=== PATIENT | male | born 1945 | race Caucasian/White ===

== ENCOUNTER → 2017-08-16 | Outpatient (CLI) | payer MEDICARE ==
[~2017-08-16] MED LIST: CHOL10003 PO; CLOP75TA PO; LISI-170 PO; MULT-224 PO; SIMV40TA3 PO
[2017-08-16 16:15] LABS: HEMATOCRIT 49.2 % (39.2-51.8); HEMOGLOBIN 16.8 g/dL (13.7-18.0); WHITE BLOOD COUNT 12.4 x10^3/uL (3.4-10)
[2017-08-16 16:27] LABS: BLOOD UREA NITROGEN 14 mg/dL (7-18)
== END | disposition home or self-care (01) ==
LOC: STAR 15:17
PROVIDERS: ATTEND Surgery
DX: Z01.818 Encounter for other preprocedural examination (principal); I10 Essential (primary) hypertension; E78.5 Hyperlipidemia, unspecified; I70.213 Atherosclerosis of native arteries of extremities with intermittent claudication, bilateral legs; I71.4 Abdominal aortic aneurysm, without rupture
CPT/HCPCS: 36415; 80048; 85025

== ENCOUNTER 2017-08-24 08:16 | Day surgery (SDC) | payer MEDICARE ==
[~2017-08-24] VITALS: Ht 172.7 cm; Wt 65.9 kg
[2017-08-24 09:02] VITALS: BP 130/78
[2017-08-24] MEDS ORDERED: SODIUM CHLORIDE 0.9% 1,000 ML IV SCH (09:30)
[2017-08-24] MEDS ORDERED: FENTANYL PF 100 MCG/2ML ONE ×2 (10:02)
[2017-08-24] MEDS ORDERED: FLUMAZENIL 0.1 MG/1 ML, 5ML ONE (10:02)
[2017-08-24] MEDS ORDERED: MIDAZOLAM 1 MG/ML, 5ML ONE (10:02)
[2017-08-24] MEDS ORDERED: PROTAMINE SULFATE 10 MG/ML, 25ML ONE (10:03)
[2017-08-24] MEDS ORDERED: HEPARIN 1,000 UNITS/ML, 10ML ONE (10:03)
[2017-08-24] MEDS ORDERED: NALOXONE 1 MG/ML, 2ML ONE (10:03)
[2017-08-24] MEDS ORDERED: NITROGLYCERIN 5 MG/ML, 10ML ONE (10:03)
[2017-08-24] MEDS ORDERED: VISIPAQUE 270 MG/ML, 150ML BOTTLE ONE (10:30)
== END 2017-08-24 16:00 ==
LOC: OUT 08:16
PROVIDERS: ATTEND Surgery
DX: I70.213 Atherosclerosis of native arteries of extremities with intermittent claudication, bilateral legs (principal); I10 Essential (primary) hypertension; Z86.73 Personal history of transient ischemic attack (TIA), and cerebral infarction without residual deficits; Z98.890 Other specified postprocedural states; Z87.891 Personal history of nicotine dependence
CPT/HCPCS: 37221; 75630; 99156; 99157; C1751; C1760; C1769; C1876; C1894; J1644; J2250; J3010; J7030; Q9966; J2720; J2310